=== PATIENT | male | born 1940 | race Caucasian/White ===

== ENCOUNTER 2017-03-29 19:49 | Emergency (ER) | payer MEDICARE, OTHER ==
[~2017-03-29] VITALS: Ht 162.6 cm; Wt 124.3 kg
[~2017-03-29 19:49] MED LIST: ASPI81CH43 GT; DICL100T11 OR; DIGO0.2570 OR; DILT120C22 OR; DILT40TA; DOXA1TAB; FLUO0.05 EX; FLUT110A IN; GLUCPOW42 OR; LOVA20TA4 OR; METH750T3 OR; MULTTAB99 OR; MUPI2CRE EX; NYSTOIN10 EX; TAM04C; WARF1TAB
[2017-03-29] MEDS ORDERED: MORPHINE SULF INJ 2 MG/ML SYRINGE 1ML IV ONE (22:30)
[2017-03-29] MEDS ORDERED: ONDANSETRON HCL 4 MG/2 ML VIAL IV ONE (22:30)
[2017-03-29 22:36] LABS: Basophils # (auto) 0.3 uL; Basophils % (auto) 2.9 % (0.0-2.0); Eosinophils # (auto) 0.1 uL; Eosinophils % (auto) 0.7 % (0.0-7.0); Hematocrit 39.2 % (41.0-53.0); Hemoglobin 13.1 g/dL (13.5-17.5); Lymphocytes # (auto) 0.6 uL; Lymphocytes % (auto) 6.5 % (10.0-50.0); Mean Corpuscular Hgb Conc. 33.5 g/dL (32.0-36.0); Mean Corpuscular Volume 92.7 fL (80.0-100.0); Mean Platelet Volume 8.3 fL (6.9-10.8); Monocytes # (auto) 0.6 uL; Monocytes % (auto) 6.3 % (0.0-12.0); Neutrophils # (auto) 7.3 uL; Neutrophils % (auto) 83.6 % (37.0-80.0); Nucleated Red Blood Cells % 0.1 %; Platelet Count (auto) 191 10^3/uL (140-450); Red Cell Distribution Width 15.2 % (11.8-14.3); White Blood Cell 8.7 10^3/uL (4.4-10.8)
[2017-03-29 22:51] LABS: INR 1.05 (0.9-1.15); Prothrombin Time 11.5 sec (9.37-12.3)
[2017-03-29 22:52] LABS: Anion Gap 10 (5-15); Blood Urea Nitrogen 22 mg/dL (7-18); Calcium 8.2 mg/dL (8.5-10.1); Carbon Dioxide 23 mmol/L (21-32); Chloride 107 mmol/L (98-107); Glucose 141 mg/dL (74-106); Potassium 3.7 mmol/L (3.5-5.1); Sodium 140 mmol/L (136-145)
[2017-03-29 22:55] LABS: Aspartate Aminotransferase 24 U/L (15-37); BUN/Creatinine Ratio 23.9; GFR African American 102 mL/min; GFR Non-African American 85 mL/min
[2017-03-29 23:16] LABS: Alkaline Phosphatase 82 U/L (45-117); Bilirubin, Total 0.4 mg/dL (0.2-1.0); Total Protein 6.2 g/dL (6.4-8.2)
[2017-03-30 00:50] LABS: Urine Bilirubin Negative (Negative); Urine Blood Negative /uL (Negative); Urine Color Yellow (Yellow); Urine Glucose Normal (Normal); Urine Hyaline Cast FEW /lpf (0 - 2); Urine Ketone Negative (Negative); Urine Mucus FEW (None Seen); Urine Nitrite Negative (Negative); Urine RBC 5 /hpf (0 - 3); Urine Squamous Epithelial Cell FEW /hpf (<5); Urine Urobilinogen Normal (Negative)
[2017-03-30] MEDS ORDERED: ONDANSETRON HCL 4 MG/2 ML VIAL IV ONE (01:15)
[2017-03-30] MEDS ORDERED: MORPHINE SULF INJ 2 MG/ML SYRINGE 1ML IV ONE (01:15)
[2017-03-30 02:49] VITALS: BP 96/66
== END 2017-03-30 05:37 | disposition home or self-care (01) ==
LOC: EDBD 19:49 → ER 19:49
DX: S82.891A Other fracture of right lower leg, initial encounter for closed fracture (principal); S92.901A Unspecified fracture of right foot, initial encounter for closed fracture; S20.211A Contusion of right front wall of thorax, initial encounter; S30.1XXA Contusion of abdominal wall, initial encounter; I10 Essential (primary) hypertension; J44.9 Chronic obstructive pulmonary disease, unspecified; E11.9 Type 2 diabetes mellitus without complications; Z79.01 Long term (current) use of anticoagulants; Z79.82 Long term (current) use of aspirin; V49.49XA Driver injured in collision with other motor vehicles in traffic accident, initial encounter; Y93.89 Activity, other specified; Y99.8 Other external cause status; Y92.488 Other paved roadways as the place of occurrence of the external cause
CPT/HCPCS: 29515; 36415; 70450; 71250; 73610; 73700; 74176; 80053; 81001; 84484; 85025; 85610; 85730; 93005; 96374; 96375; 96376; 99285; J2270; J2405

== ENCOUNTER 2023-07-01 09:12 | Inpatient (IN) | payer OTHER ==
[~2023-07-01] VITALS: Ht 177.8 cm; Wt 73.2 kg
[~2023-07-01 09:12] MED LIST changes: +METH-1182 PO; -METH750T3 OR; +NYSTOIN EX; -NYSTOIN10 EX; -TAM04C; +TAMS-35 PO
[2023-07-01 09:48] LABS: Basophils # (auto) 0.1 10 ^3/uL (0-0.2); Eosinophils # (auto) 0 10 ^3/uL (0-0.8); Eosinophils % (auto) 0.3 % (0.0-7.0); Lymphocytes # (auto) 0.8 10 ^3/uL (0.4-5.4)
[2023-07-01 09:50] LABS: Basophils % (auto) 0.6 % (0.0-2.0); Hematocrit 32.1 % (41.0-53.0); Hemoglobin 10.7 g/dL (13.5-17.5); Lymphocytes % (auto) 6.4 % (10.0-50.0); Mean Corpuscular Hemoglobin 27.3 pg (28.0-32.0); Mean Corpuscular Hgb Conc. 33.3 g/dL (32.0-36.0); Monocytes % (auto) 7.7 % (0.0-12.0); Neutrophils # (auto) 10.9 10 ^3/uL (1.6-8.6); Red Blood Cells 3.92 10^6/uL (4.5-5.90); White Blood Cell 12.9 10^3/uL (4.4-10.8)
[2023-07-01 09:52] LABS: Red Cell Distribution Width 20.9 % (11.8-14.3)
[2023-07-01 10:06] LABS: Alanine Aminotransferase 19 U/L (7-40); Albumin 3.8 g/dL (3.2-4.8); Alkaline Phosphatase 247 U/L (46-116); Anion Gap 9 (5-15); Aspartate Aminotransferase 20 U/L (13-40); BUN/Creatinine Ratio 39.1 (10.0-20.0); Bilirubin, Total 0.6 mg/dL (0.2-1.0); Blood Urea Nitrogen 27 mg/dL (9-23); Calcium 9.7 mg/dL (8.7-10.4); Carbon Dioxide 31 mmol/L (20-30); Chloride 99 mmol/L (98-107); Glucose 143 mg/dL (74-106); Lipase 45 U/L (12-53); Potassium 3.4 mmol/L (3.5-5.1); Sodium 139 mmol/L (136-145); Total Protein 7.3 g/dL (5.7-8.2)
[2023-07-01 10:17] LABS: INR 1.23 (0.9-1.15); Partial Thromboplastin Time 34.3 SEC (24.5-34.5); Prothrombin Time 12.7 sec (9.3-11.8)
[2023-07-01 12:04] LABS: Urine Epithelial Cast None Seen /hpf (<5)
[2023-07-01 12:40] LABS: Urine Bacteria MOD /hpf (None Seen); Urine Blood 1+ /uL (Negative); Urine Clarity CLOUDY (Clear); Urine Color Yellow (Yellow); Urine Mucus FEW (None Seen); Urine Protein, UAD 1+ (Negative); Urine Specific Gravity 1.017 (1.001-1.035); Urine Urobilinogen Normal (Negative); Urine WBC 350 /hpf (0 - 3); Urine WBC Clumps PRESENT /hpf (None Seen); Urine pH 8.5 (5.0-8.0)
[2023-07-01] MEDS: SODIUM CHLORIDE 0.9% 1,000 ML IV ONE (15:12)
[2023-07-01] MEDS: cefTRIAXone 1GM/50ML D5W 50 ML IV ONE (15:18)
[2023-07-01] MEDS: AZITHROMYCIN 500MG/ 250ML 250 ML IV ONE (17:04)
[2023-07-01] MEDS ORDERED: DOCUSATE SOD 100 MG CAP PO PRN (18:15)
[2023-07-01] MEDS ORDERED: MORPHINE SULFATE INJ 2 MG/ml SYRG IV PRN (18:15)
[2023-07-01] MEDS ORDERED: NITROGLYCERIN 0.4 MG SL TAB SL PRN (18:15)
[2023-07-01] MEDS: SODIUM CHLORIDE 0.9% 1,000 ML IV SCH (18:15)
[2023-07-01] MEDS ORDERED: POTA1TAB4 PO (18:38)
[2023-07-01] MEDS ORDERED: FER325T PO (18:38)
[2023-07-01] MEDS ORDERED: METH-1181 PO (18:38)
[2023-07-01] MEDS ORDERED: FURO40TA4 PO (18:38)
[2023-07-01] MEDS ORDERED: TAMS0.4C36 PO (18:38)
[2023-07-01] MEDS ORDERED: GABA-1250 PO (18:38)
[2023-07-01] MEDS ORDERED: HYDR-4798 PO (18:38)
[2023-07-01] MEDS ORDERED: APIX5TAB PO (18:38)
[2023-07-01] MEDS ORDERED: ATOR40TA52 PO (18:38)
[2023-07-01] MEDS ORDERED: METO5TAB5 PO (18:38)
[2023-07-01] MEDS ORDERED: IPRATROPIUM BROM 0.5 MG/2.5ML INH SOL NEB PRN (18:45)
[2023-07-01] MEDS ORDERED: DEXTROSE (50%) 50ML SYRG IV PRN (18:45)
[2023-07-01] MEDS ORDERED: ALBUTEROL SULF 2.5 MG/0.5ML(0.5%) NEB SOLN NEB PRN (18:45)
[2023-07-01 19:10] VITALS: BP 90/65; PULSE 97; RESP 18; TEMP 97.9; O2SAT 97
[2023-07-01] MEDS: ONDANSETRON HCL 4 MG/2 ML VIAL IV PRN (19:12)
[2023-07-01] MEDS: POTASSIUM EFFERVESENT TAB 25 MEQ PO ONE (19:12)
[2023-07-01 19:29] VITALS: O2SAT 97
[2023-07-01 19:35] VITALS: PULSE 72; RESP 15; O2SAT 100
[2023-07-01] MEDS: GABAPENTIN 300 MG CAP PO SCH (22:12)
[2023-07-01] MEDS: PANTOPRAZOLE 40 MG/10 ML VIAL INJ IV SCH (22:12)
[2023-07-01] MEDS: METHOCARBAMOL 500 MG TAB PO SCH (22:13)
[2023-07-01] MEDS: ATORVASTATIN 20 MG TAB PO SCH (22:13)
[2023-07-01] MEDS: ACCU-CHEK COMFORT CURVE STRIP VI SCH (22:16)
[2023-07-02 01:55] LABS: COVID19 ANTIGEN SOFIA FIA NEGATIVE (NEGATIVE); Rapid Influenza A Negative (Negative); Rapid Influenza B Negative (Negative)
[2023-07-02 06:22] LABS: Basophils # (auto) 0.1 10 ^3/uL (0-0.2); Basophils % (auto) 0.8 % (0.0-2.0); Eosinophils # (auto) 0.1 10 ^3/uL (0-0.8); Eosinophils % (auto) 1.2 % (0.0-7.0); Hematocrit 30.4 % (41.0-53.0); Hemoglobin 10.1 g/dL (13.5-17.5); Lymphocytes # (auto) 1.3 10 ^3/uL (0.4-5.4); Lymphocytes % (auto) 14.3 % (10.0-50.0); Mean Corpuscular Hemoglobin 27.1 pg (28.0-32.0); Mean Corpuscular Hgb Conc. 33.2 g/dL (32.0-36.0); Mean Corpuscular Volume 81.7 fL (80.0-100.0); Monocytes # (auto) 0.9 10 ^3/uL (0-1.3); Monocytes % (auto) 10.2 % (0.0-12.0); Neutrophils # (auto) 6.5 10 ^3/uL (1.6-8.6); Neutrophils % (auto) 73.5 % (37.0-80.0); Red Blood Cells 3.72 10^6/uL (4.5-5.90); White Blood Cell 8.9 10^3/uL (4.4-10.8)
[2023-07-02 06:29] LABS: Red Cell Distribution Width 21.5 % (11.8-14.3)
[2023-07-02 06:38] LABS: Alanine Aminotransferase 14 U/L (7-40); Alkaline Phosphatase 201 U/L (46-116); Anion Gap 6 (5-15); BUN/Creatinine Ratio 32.4 (10.0-20.0); Blood Urea Nitrogen 22 mg/dL (9-23); Calcium 10.2 mg/dL (8.5-10.1); Carbon Dioxide 32 mmol/L (20-30); Chloride 100 mmol/L (98-107); Glucose 125 mg/dL (74-106); LDL Cholesterol 39 mg/dL (< 100); Potassium 4.1 mmol/L (3.5-5.1); Sodium 138 mmol/L (136-145); Triglycerides 55 mg/dL (< 150)
[2023-07-02 06:39] LABS: Albumin 3.7 g/dL (3.2-4.8); Aspartate Aminotransferase 15 U/L (13-40); Bilirubin, Total 0.7 mg/dL (0.2-1.0); Cholesterol 115 mg/dL (< 200); HDL Cholesterol 57 mg/dL (40-59); Total Protein 7.3 g/dL (5.7-8.2)
[2023-07-02 06:48] VITALS: O2SAT 98
[2023-07-02] MEDS: FUROSEMIDE 20 MG/2 ML VIAL IV SCH (06:56)
[2023-07-02] MEDS: cefTRIAXone 1GM/50ML D5W 50 ML IV SCH (09:00)
[2023-07-02] MEDS: GASTROGRAFIN 120 ML SOL ONE (09:13)
[2023-07-02] MEDS: AZITHROMYCIN 500MG/ 250ML 250 ML IV SCH (10:00)
[2023-07-02] MEDS ORDERED: FUROSEMIDE 40 MG TAB PO SCH (10:00)
[2023-07-02] MEDS: LACTULOSE 20Gm/30ML SOLN PO SCH (10:22)
[2023-07-02] MEDS: POTASSIUM CHL 20 Meq TABLET PO SCH (10:23)
[2023-07-02] MEDS: FERROUS SULFATE 325mg EC TAB PO SCH (10:28)
[2023-07-02] MEDS: metOLazone 5 MG TAB PO SCH (10:28)
[2023-07-02] MEDS: TAMSULOSIN HYDROCHLORIDE 0.4 MG CAP PO SCH (18:00)
[2023-07-02 18:08] VITALS: O2SAT 97
[2023-07-02 19:30] VITALS: PULSE 70; RESP 11; O2SAT 100
[2023-07-02] MEDS: ENOXAPARIN SOD 80 MG/0.8ML SYRINGE SC SCH (20:23)
[2023-07-02] MEDS: METOPROLOL TARTRATE 25 MG TAB PO SCH (22:26)
[2023-07-03] VITALS (38 sets, daily range): BP systolic 77–129; BP diastolic 43–70; PULSE 43–106; RESP 11–22; TEMP 97.8–98.8; O2SAT 90–100
[2023-07-03] MEDS: dilTIAZem 120MG ER CAP PO SCH (09:40)
[2023-07-03] MEDS ORDERED: SPIRONOLACTONE 25 MG TAB PO SCH (10:00)
[2023-07-03] MEDS: NOREPINEPHRINE 8 MG/250ML KIT 250 ML IV ONE (16:22)
[2023-07-03] MEDS: NOREPINEPHRINE 8 MG/250ML KIT 250 ML IV SCH (16:23)
[2023-07-03] MEDS: DOPamine 1600MCG/ML D5W 250 ML IV ONE (16:44)
[2023-07-03] MEDS: GLUCAGON EMERG KIT 1mg/1ml IV ONE (17:00)
[2023-07-03] MEDS: DOPamine 1600MCG/ML D5W 250 ML IV SCH (17:22)
[2023-07-03 18:15] LABS: Basophils # (auto) 0.1 10 ^3/uL (0-0.2); Basophils % (auto) 1.4 % (0.0-2.0); Eosinophils # (auto) 0.3 10 ^3/uL (0-0.8); Eosinophils % (auto) 3.3 % (0.0-7.0); Hemoglobin 10.5 g/dL (13.5-17.5); Lymphocytes # (auto) 2.2 10 ^3/uL (0.4-5.4); Lymphocytes % (auto) 21.2 % (10.0-50.0); Mean Corpuscular Hemoglobin 27.1 pg (28.0-32.0); Mean Corpuscular Hgb Conc. 31.9 g/dL (32.0-36.0); Mean Corpuscular Volume 85.2 fL (80.0-100.0); Monocytes # (auto) 0.8 10 ^3/uL (0-1.3); Monocytes % (auto) 8.2 % (0.0-12.0); Neutrophils # (auto) 6.8 10 ^3/uL (1.6-8.6); Neutrophils % (auto) 65.9 % (37.0-80.0); Red Blood Cells 3.87 10^6/uL (4.5-5.90); White Blood Cell 10.4 10^3/uL (4.4-10.8)
[2023-07-03 18:18] LABS: Red Cell Distribution Width 21.6 % (11.8-14.3)
[2023-07-03 18:27] LABS: INR 1.31 (0.9-1.15); Partial Thromboplastin Time 42.1 SEC (24.5-34.5); Prothrombin Time 13.5 sec (9.3-11.8)
[2023-07-03 20:21] LABS: Chloride 103 mmol/L (98-107); Potassium 3.2 mmol/L (3.5-5.1)
[2023-07-03 20:24] LABS: Carbon Dioxide 26 mmol/L (20-30)
[2023-07-03 20:29] LABS: Glucose 170 mg/dL (74-106)
[2023-07-03 20:30] LABS: Alkaline Phosphatase 213 U/L (46-116); BUN/Creatinine Ratio 36.9 (10.0-20.0); Blood Urea Nitrogen 24 mg/dL (9-23); Magnesium 1.7 mg/dL (1.6-2.6)
[2023-07-03 20:31] LABS: Alanine Aminotransferase 16 U/L (7-40); Albumin 3.7 g/dL (3.2-4.8); Aspartate Aminotransferase 20 U/L (13-40)
[2023-07-03 20:32] LABS: Bilirubin, Total 0.7 mg/dL (0.2-1.0); Total Protein 7.1 g/dL (5.7-8.2)
[2023-07-03] MEDS: POTASSIUM CHL 20MEQ/100ML 100 ML IV SCH ×2 (21:30→23:49)
[2023-07-03] MEDS: MAGNESIUM SULFATE 1GM/100ML 100 ML IV ONE (21:30)
[2023-07-03 21:32] LABS: Anion Gap 8 (5-15); Sodium 137 mmol/L (136-145)
[2023-07-03] MEDS: MAGNESIUM SULFATE 1GM/100ML 100 ML IV SCH (21:44)
[2023-07-03 22:31] LABS: Free T3 1.8 pg/mL (2.3-4.2); Free T4 (Free Thyroxine) 1.18 ng/dL (0.89-1.76)
[2023-07-04] VITALS (101 sets, daily range): BP systolic 79–138; BP diastolic 50–107; PULSE 7–131; RESP 10–25; TEMP 97–98.7; O2SAT 91–100
[2023-07-04 07:16] LABS: Basophils # (auto) 0.1 10 ^3/uL (0-0.2); Basophils % (auto) 1.1 % (0.0-2.0); Eosinophils # (auto) 0.3 10 ^3/uL (0-0.8); Eosinophils % (auto) 2.8 % (0.0-7.0); Hematocrit 30.7 % (41.0-53.0); Hemoglobin 10.1 g/dL (13.5-17.5); Lymphocytes # (auto) 1.4 10 ^3/uL (0.4-5.4); Lymphocytes % (auto) 14.1 % (10.0-50.0); Mean Corpuscular Hemoglobin 26.8 pg (28.0-32.0); Mean Corpuscular Hgb Conc. 32.8 g/dL (32.0-36.0); Mean Corpuscular Volume 81.6 fL (80.0-100.0); Monocytes # (auto) 0.8 10 ^3/uL (0-1.3); Monocytes % (auto) 8.6 % (0.0-12.0); Neutrophils # (auto) 7.2 10 ^3/uL (1.6-8.6); Neutrophils % (auto) 73.4 % (37.0-80.0); Red Blood Cells 3.76 10^6/uL (4.5-5.90); Red Cell Distribution Width 20.9 % (11.8-14.3); White Blood Cell 9.8 10^3/uL (4.4-10.8)
[2023-07-04 07:42] LABS: Alanine Aminotransferase 13 U/L (7-40); Albumin 3.7 g/dL (3.2-4.8); Alkaline Phosphatase 195 U/L (46-116); Anion Gap 6 (5-15); Aspartate Aminotransferase 16 U/L (13-40); BUN/Creatinine Ratio 22.6 (10.0-20.0); Blood Urea Nitrogen 12 mg/dL (9-23); Calcium 8.8 mg/dL (8.7-10.4); Carbon Dioxide 26 mmol/L (20-30); Chloride 103 mmol/L (98-107); Glucose 159 mg/dL (74-106); Potassium 3.5 mmol/L (3.5-5.1); Sodium 135 mmol/L (136-145)
[2023-07-04 07:43] LABS: Bilirubin, Total 0.6 mg/dL (0.2-1.0); Total Protein 7.5 g/dL (5.7-8.2)
[2023-07-04] MEDS: FUROSEMIDE 20 MG/2 ML VIAL IV SCH (10:16)
[2023-07-04] MEDS: POTASSIUM CHL 20MEQ/100ML 100 ML IV SCH (11:56)
[2023-07-04] MEDS: APIXABAN 2.5 MG TAB PO SCH (21:09)
[2023-07-05] VITALS (98 sets, daily range): BP systolic 81–139; BP diastolic 25–76; PULSE 56–102; RESP 9–26; TEMP 97.6–98.6; O2SAT 95–100
[2023-07-05 05:23] LABS: Basophils # (auto) 0.1 10 ^3/uL (0-0.2); Basophils % (auto) 1.2 % (0.0-2.0); Eosinophils # (auto) 0.4 10 ^3/uL (0-0.8); Eosinophils % (auto) 4.1 % (0.0-7.0); Hematocrit 31.2 % (41.0-53.0); Hemoglobin 10.3 g/dL (13.5-17.5); Lymphocytes # (auto) 1.4 10 ^3/uL (0.4-5.4); Mean Corpuscular Hgb Conc. 33.2 g/dL (32.0-36.0); Mean Corpuscular Volume 81.3 fL (80.0-100.0); Monocytes # (auto) 0.9 10 ^3/uL (0-1.3); Neutrophils # (auto) 6.6 10 ^3/uL (1.6-8.6); Neutrophils % (auto) 69.7 % (37.0-80.0); Nucleated Red Blood Cells % 0.1 %; Red Blood Cells 3.83 10^6/uL (4.5-5.90); White Blood Cell 9.5 10^3/uL (4.4-10.8)
[2023-07-05 05:28] LABS: Chloride 102 mmol/L (98-107); Potassium 3.7 mmol/L (3.5-5.1); Sodium 134 mmol/L (136-145)
[2023-07-05 05:29] LABS: Anion Gap 5 (5-15); Calcium 8.8 mg/dL (8.7-10.4); Carbon Dioxide 27 mmol/L (20-30)
[2023-07-05 05:34] LABS: Glucose 134 mg/dL (74-106)
[2023-07-05 05:35] LABS: BUN/Creatinine Ratio 13.3 (10.0-20.0); Blood Urea Nitrogen 6 mg/dL (9-23); Magnesium 1.8 mg/dL (1.6-2.6)
[2023-07-05 06:12] LABS: Red Cell Distribution Width 20.5 % (11.8-14.3)
[2023-07-05] MEDS: MIDODRINE HCL 10 MG TAB PO SCH (17:18)
[2023-07-05] MEDS: ACETAMINOPHEN 325 MG TAB PO PRN (17:33)
[2023-07-05] MEDS: MELATONIN 5 MG TAB PO SCH (21:08)
[2023-07-05] MEDS: MUPIROCIN 2% OINT 15gm or 22gm FOR MRSA NARES EACHNOSTRI SCH (21:14)
[2023-07-05] MEDS: MAGNESIUM SULFATE 1GM/100ML 100 ML IV ONE (21:24)
[2023-07-06] VITALS (98 sets, daily range): BP systolic 68–126; BP diastolic 36–81; PULSE 53–119; RESP 10–27; TEMP 98.4–99.5; O2SAT 95–100
[2023-07-06 03:52] LABS: Basophils # (auto) 0.1 10 ^3/uL (0-0.2); Basophils % (auto) 1.4 % (0.0-2.0); Eosinophils # (auto) 0.4 10 ^3/uL (0-0.8); Eosinophils % (auto) 4.7 % (0.0-7.0); Hematocrit 32.4 % (41.0-53.0); Hemoglobin 10.8 g/dL (13.5-17.5); Lymphocytes # (auto) 1.8 10 ^3/uL (0.4-5.4); Mean Corpuscular Hemoglobin 27.2 pg (28.0-32.0); Mean Corpuscular Hgb Conc. 33.3 g/dL (32.0-36.0); Mean Corpuscular Volume 81.7 fL (80.0-100.0); Monocytes # (auto) 0.8 10 ^3/uL (0-1.3); Monocytes % (auto) 9.2 % (0.0-12.0); Neutrophils # (auto) 5.7 10 ^3/uL (1.6-8.6); Neutrophils % (auto) 64.7 % (37.0-80.0); Red Blood Cells 3.97 10^6/uL (4.5-5.90); White Blood Cell 8.9 10^3/uL (4.4-10.8)
[2023-07-06 03:54] LABS: Red Cell Distribution Width 20.4 % (11.8-14.3)
[2023-07-06 04:03] LABS: Calcium 9.1 mg/dL (8.7-10.4); Chloride 101 mmol/L (98-107); Potassium 4.2 mmol/L (3.5-5.1); Sodium 133 mmol/L (136-145)
[2023-07-06 04:04] LABS: Anion Gap 9 (5-15); Carbon Dioxide 23 mmol/L (20-30)
[2023-07-06 04:09] LABS: BUN/Creatinine Ratio 10.7 (10.0-20.0); Blood Urea Nitrogen 6 mg/dL (9-23); Glucose 139 mg/dL (74-106)
[2023-07-06 04:10] LABS: Magnesium 1.8 mg/dL (1.6-2.6)
[2023-07-07] VITALS (99 sets, daily range): BP systolic 74–123; BP diastolic 42–73; PULSE 51–114; RESP 10–27; TEMP 97.9–99.9; O2SAT 96–100
[2023-07-07 04:31] LABS: Anion Gap 10 (5-15); Carbon Dioxide 23 mmol/L (20-30); Chloride 101 mmol/L (98-107); Potassium 4.4 mmol/L (3.5-5.1); Sodium 134 mmol/L (136-145)
[2023-07-07 04:32] LABS: Calcium 8.9 mg/dL (8.7-10.4)
[2023-07-07 04:37] LABS: BUN/Creatinine Ratio 11.9 (10.0-20.0); Blood Urea Nitrogen 7 mg/dL (9-23); Glucose 146 mg/dL (74-106)
[2023-07-07] MEDS: NITROGLYCERIN 2% OINT 1GM PKG TD ONE (14:50)
[2023-07-07 15:27] LABS: INR 1.13 (0.9-1.15); Partial Thromboplastin Time 33.9 SEC (24.5-34.5); Prothrombin Time 11.8 sec (9.3-11.8)
[2023-07-07] MEDS: ERTAPENEM SOD INJ 1 GM in SODIUM CHL 0.9% 50 ML IV SCH (15:58)
[2023-07-07] MEDS: LIDOCAINE 1% (LOCAL ANESTH.) PF 5ml SDV ID ONE (16:20)
[2023-07-07] MEDS: SODIUM CHLOR 0.9% PF (SALINE LOCK) 10ML VIAL/SYR IV SCH (22:58)
[2023-07-08] VITALS (101 sets, daily range): BP systolic 71–132; BP diastolic 42–73; PULSE 54–107; RESP 12–25; TEMP 97.4–98.4; O2SAT 97–100
[2023-07-08 04:13] LABS: Basophils # (auto) 0 10 ^3/uL (0-0.2); Eosinophils # (auto) 0.5 10 ^3/uL (0-0.8); Hemoglobin 9.6 g/dL (13.5-17.5); Monocytes # (auto) 0.8 10 ^3/uL (0-1.3); Monocytes % (auto) 9.1 % (0.0-12.0); Neutrophils # (auto) 5.3 10 ^3/uL (1.6-8.6)
[2023-07-08 04:15] LABS: Basophils % (auto) 0.3 % (0.0-2.0); Eosinophils % (auto) 5.9 % (0.0-7.0); Hematocrit 29.1 % (41.0-53.0); Lymphocytes # (auto) 2.4 10 ^3/uL (0.4-5.4); Lymphocytes % (auto) 26.6 % (10.0-50.0); Mean Corpuscular Hemoglobin 26.6 pg (28.0-32.0); Mean Corpuscular Hgb Conc. 32.8 g/dL (32.0-36.0); Mean Corpuscular Volume 81.1 fL (80.0-100.0); Neutrophils % (auto) 58.1 % (37.0-80.0); Nucleated Red Blood Cells % 0.2 %; Red Blood Cells 3.59 10^6/uL (4.5-5.90); White Blood Cell 9.1 10^3/uL (4.4-10.8)
[2023-07-08 04:29] LABS: Calcium 8.5 mg/dL (8.7-10.4); Chloride 101 mmol/L (98-107); Potassium 4.1 mmol/L (3.5-5.1); Sodium 134 mmol/L (136-145)
[2023-07-08 04:30] LABS: Anion Gap 10 (5-15); Carbon Dioxide 23 mmol/L (20-30)
[2023-07-08 04:35] LABS: Glucose 130 mg/dL (74-106)
[2023-07-08 04:36] LABS: BUN/Creatinine Ratio 14.5 (10.0-20.0); Blood Urea Nitrogen 8 mg/dL (9-23); Magnesium 1.7 mg/dL (1.6-2.6)
[2023-07-08 04:51] LABS: Red Cell Distribution Width 20.6 % (11.8-14.3)
[2023-07-08] MEDS: NOREPINEPHRINE 8 MG/250ML KIT 250 ML IV SCH (18:00)
[2023-07-08] MEDS: MAGNESIUM SULFATE 1GM/100ML 100 ML IV SCH (18:56)
[2023-07-09] VITALS (96 sets, daily range): BP systolic 79–141; BP diastolic 43–81; PULSE 50–109; RESP 11–28; TEMP 97.6–98.7; O2SAT 92–100
[2023-07-09 04:28] LABS: Basophils # (auto) 0.3 10 ^3/uL (0-0.2); Eosinophils # (auto) 0.6 10 ^3/uL (0-0.8); Hemoglobin 10.2 g/dL (13.5-17.5); Lymphocytes # (auto) 1.9 10 ^3/uL (0.4-5.4)
[2023-07-09 04:30] LABS: Alanine Aminotransferase 14 U/L (7-40); Albumin 3.6 g/dL (3.2-4.8); Alkaline Phosphatase 173 U/L (46-116); Anion Gap 6 (5-15); Aspartate Aminotransferase 16 U/L (13-40); BUN/Creatinine Ratio 16.7 (10.0-20.0); Blood Urea Nitrogen 10 mg/dL (9-23); Calcium 9.1 mg/dL (8.5-10.1); Carbon Dioxide 26 mmol/L (20-30); Chloride 101 mmol/L (98-107); Glucose 142 mg/dL (74-106); Potassium 4.2 mmol/L (3.5-5.1); Sodium 133 mmol/L (136-145)
[2023-07-09 04:31] LABS: Bilirubin, Total 0.4 mg/dL (0.2-1.0)
[2023-07-09 04:32] LABS: Basophils % (auto) 2.8 % (0.0-2.0); Eosinophils % (auto) 6.5 % (0.0-7.0); Hematocrit 30.5 % (41.0-53.0); Lymphocytes % (auto) 21.2 % (10.0-50.0); Mean Corpuscular Hemoglobin 27.4 pg (28.0-32.0); Mean Corpuscular Hgb Conc. 33.6 g/dL (32.0-36.0); Mean Corpuscular Volume 81.8 fL (80.0-100.0); Monocytes % (auto) 10.6 % (0.0-12.0); Neutrophils # (auto) 5.3 10 ^3/uL (1.6-8.6); Neutrophils % (auto) 58.9 % (37.0-80.0); Red Blood Cells 3.73 10^6/uL (4.5-5.90); White Blood Cell 8.9 10^3/uL (4.4-10.8)
[2023-07-09 04:42] LABS: Red Cell Distribution Width 20.8 % (11.8-14.3)
[2023-07-09 12:26] LABS: Magnesium 2.1 mg/dL (1.6-2.6)
[2023-07-09 12:28] LABS: Phosphorus 3.4 mg/dL (2.4-5.1)
[2023-07-09] MEDS: DOPamine 1600MCG/ML D5W 250 ML IV SCH (17:15)
[2023-07-10] VITALS (98 sets, daily range): BP systolic 78–133; BP diastolic 50–75; PULSE 54–98; RESP 10–36; TEMP 97.6–98.4; O2SAT 90–100
[2023-07-10 07:00] LABS: Basophils # (auto) 0 10 ^3/uL (0-0.2); Basophils % (auto) 0.3 % (0.0-2.0); Eosinophils # (auto) 0.5 10 ^3/uL (0-0.8); Hematocrit 30.6 % (41.0-53.0); Lymphocytes # (auto) 1.8 10 ^3/uL (0.4-5.4); Lymphocytes % (auto) 21.7 % (10.0-50.0); Mean Corpuscular Hemoglobin 26.7 pg (28.0-32.0); Mean Corpuscular Hgb Conc. 32.7 g/dL (32.0-36.0); Mean Corpuscular Volume 81.7 fL (80.0-100.0); Monocytes # (auto) 0.8 10 ^3/uL (0-1.3); Monocytes % (auto) 9.9 % (0.0-12.0); Neutrophils # (auto) 5.2 10 ^3/uL (1.6-8.6); Neutrophils % (auto) 62.1 % (37.0-80.0); Red Blood Cells 3.75 10^6/uL (4.5-5.90); White Blood Cell 8.4 10^3/uL (4.4-10.8)
[2023-07-10 07:02] LABS: Red Cell Distribution Width 20.4 % (11.8-14.3)
[2023-07-10 07:04] LABS: Anion Gap 6 (5-15); Calcium 8.9 mg/dL (8.7-10.4); Carbon Dioxide 26 mmol/L (20-30); Chloride 101 mmol/L (98-107); Potassium 4.2 mmol/L (3.5-5.1); Sodium 133 mmol/L (136-145)
[2023-07-10 07:10] LABS: BUN/Creatinine Ratio 17.5 (10.0-20.0); Blood Urea Nitrogen 11 mg/dL (9-23); Glucose 136 mg/dL (74-106)
[2023-07-10 07:11] LABS: Magnesium 1.8 mg/dL (1.6-2.6)
[2023-07-10] MEDS: PANTOPRAZOLE 40 MG TAB PO SCH (10:23)
[2023-07-10] MEDS: POTASSIUM CHL 10 Meq TABLET PO SCH (10:23)
[2023-07-10] MEDS ORDERED: MIDODRINE HCL 10 MG TAB PO SCH (12:00)
[2023-07-10] MEDS: HYDROcodone-ACET 5/325MG TAB PO PRN (17:49)
[2023-07-11] VITALS (98 sets, daily range): BP systolic 76–140; BP diastolic 44–79; PULSE 55–116; RESP 11–25; TEMP 97.5–98.6; O2SAT 96–100
[2023-07-11 04:15] LABS: Basophils # (auto) 0.4 10 ^3/uL (0-0.2); Basophils % (auto) 5.1 % (0.0-2.0); Eosinophils # (auto) 0.4 10 ^3/uL (0-0.8); Eosinophils % (auto) 5.6 % (0.0-7.0); Hematocrit 28.6 % (41.0-53.0); Hemoglobin 9.6 g/dL (13.5-17.5); Lymphocytes # (auto) 1.8 10 ^3/uL (0.4-5.4); Mean Corpuscular Hemoglobin 27.6 pg (28.0-32.0); Mean Corpuscular Hgb Conc. 33.5 g/dL (32.0-36.0); Mean Corpuscular Volume 82.3 fL (80.0-100.0); Monocytes # (auto) 0.7 10 ^3/uL (0-1.3); Monocytes % (auto) 8.9 % (0.0-12.0); Neutrophils # (auto) 4.5 10 ^3/uL (1.6-8.6); Neutrophils % (auto) 57.4 % (37.0-80.0); Red Blood Cells 3.47 10^6/uL (4.5-5.90); White Blood Cell 7.8 10^3/uL (4.4-10.8)
[2023-07-11 04:24] LABS: Chloride 101 mmol/L (98-107); Potassium 3.7 mmol/L (3.5-5.1); Sodium 132 mmol/L (136-145)
[2023-07-11 04:25] LABS: Anion Gap 7 (5-15); Calcium 8.6 mg/dL (8.7-10.4); Carbon Dioxide 24 mmol/L (20-30)
[2023-07-11 04:30] LABS: BUN/Creatinine Ratio 17.5 (10.0-20.0); Blood Urea Nitrogen 10 mg/dL (9-23); Glucose 190 mg/dL (74-106); Magnesium 1.6 mg/dL (1.6-2.6)
[2023-07-11 04:37] LABS: Red Cell Distribution Width 20.6 % (11.8-14.3)
[2023-07-11] MEDS: MAGNESIUM SULFATE 1GM/100ML 100 ML IV SCH (12:35)
[2023-07-11] MEDS: POTASSIUM CHL 20 Meq TABLET PO ONE (12:35)
[2023-07-11] MEDS: Glucerna Carbsteady SHAKE Stawberry 8oz PO SCH (21:22)
[2023-07-12] VITALS (97 sets, daily range): BP systolic 67–122; BP diastolic 45–72; PULSE 67–114; RESP 9–29; TEMP 97.5–97.9; O2SAT 88–100
[2023-07-12 03:54] LABS: Basophils # (auto) 0 10 ^3/uL (0-0.2); Basophils % (auto) 0.5 % (0.0-2.0); Eosinophils # (auto) 0.6 10 ^3/uL (0-0.8); Eosinophils % (auto) 7.2 % (0.0-7.0); Hematocrit 29.7 % (41.0-53.0); Hemoglobin 9.9 g/dL (13.5-17.5); Lymphocytes # (auto) 1.6 10 ^3/uL (0.4-5.4); Lymphocytes % (auto) 19.2 % (10.0-50.0); Mean Corpuscular Hgb Conc. 33.2 g/dL (32.0-36.0); Mean Corpuscular Volume 81.3 fL (80.0-100.0); Monocytes # (auto) 0.7 10 ^3/uL (0-1.3); Monocytes % (auto) 8.8 % (0.0-12.0); Neutrophils # (auto) 5.2 10 ^3/uL (1.6-8.6); Neutrophils % (auto) 64.3 % (37.0-80.0); Nucleated Red Blood Cells % 0.1 %; Red Blood Cells 3.65 10^6/uL (4.5-5.90); Red Cell Distribution Width 20.2 % (11.8-14.3); White Blood Cell 8.1 10^3/uL (4.4-10.8)
[2023-07-12 04:08] LABS: Alanine Aminotransferase 15 U/L (7-40); Alkaline Phosphatase 195 U/L (46-116); Anion Gap 7 (5-15); BUN/Creatinine Ratio 18.4 (10.0-20.0); Blood Urea Nitrogen 9 mg/dL (9-23); Calcium 8.9 mg/dL (8.7-10.4); Carbon Dioxide 25 mmol/L (20-30); Chloride 101 mmol/L (98-107); Glucose 134 mg/dL (74-106); Potassium 4.2 mmol/L (3.5-5.1); Sodium 133 mmol/L (136-145)
[2023-07-12 04:09] LABS: Albumin 3.5 g/dL (3.2-4.8); Aspartate Aminotransferase 16 U/L (13-40); Bilirubin, Total 0.3 mg/dL (0.2-1.0); Total Protein 6.9 g/dL (5.7-8.2)
[2023-07-12] MEDS: MIDODRINE HCL 10 MG TAB PO SCH (18:20)
[2023-07-13] VITALS (94 sets, daily range): BP systolic 78–137; BP diastolic 48–90; PULSE 48–102; RESP 10–27; TEMP 97.7–98.6; O2SAT 89–100
[2023-07-13 09:17] LABS: Alanine Aminotransferase 12 U/L (7-40); Albumin 3.4 g/dL (3.2-4.8); Alkaline Phosphatase 193 U/L (46-116); Anion Gap 8 (5-15); Aspartate Aminotransferase 14 U/L (13-40); BUN/Creatinine Ratio 14.8 (10.0-20.0); Blood Urea Nitrogen 8 mg/dL (9-23); Calcium 8.4 mg/dL (8.7-10.4); Carbon Dioxide 23 mmol/L (20-30); Chloride 101 mmol/L (98-107); Magnesium 1.6 mg/dL (1.6-2.6); Potassium 3.8 mmol/L (3.5-5.1); Sodium 132 mmol/L (136-145)
[2023-07-13 09:18] LABS: Bilirubin, Total 0.3 mg/dL (0.2-1.0); Total Protein 6.6 g/dL (5.7-8.2)
[2023-07-13 09:19] LABS: Glucose 236 mg/dL (74-106)
[2023-07-13 09:26] LABS: Basophils # (auto) 0.4 10 ^3/uL (0-0.2); Eosinophils # (auto) 0.4 10 ^3/uL (0-0.8); Eosinophils % (auto) 4.4 % (0.0-7.0); Hematocrit 29.1 % (41.0-53.0); Hemoglobin 9.5 g/dL (13.5-17.5); Mean Corpuscular Hemoglobin 26.6 pg (28.0-32.0); Monocytes # (auto) 0.6 10 ^3/uL (0-1.3); Red Blood Cells 3.55 10^6/uL (4.5-5.90); White Blood Cell 8.4 10^3/uL (4.4-10.8)
[2023-07-13 09:29] LABS: Basophils % (auto) 5.1 % (0.0-2.0); Lymphocytes # (auto) 1.6 10 ^3/uL (0.4-5.4); Lymphocytes % (auto) 19.3 % (10.0-50.0); Mean Corpuscular Hgb Conc. 32.6 g/dL (32.0-36.0); Mean Corpuscular Volume 81.8 fL (80.0-100.0); Neutrophils # (auto) 5.4 10 ^3/uL (1.6-8.6); Neutrophils % (auto) 64.2 % (37.0-80.0)
[2023-07-13 09:30] LABS: Red Cell Distribution Width 20.4 % (11.8-14.3)
[2023-07-13] MEDS: MAGNESIUM SULFATE 1GM/100ML 100 ML IV SCH (11:26)
[2023-07-14] VITALS (108 sets, daily range): BP systolic 83–130; BP diastolic 49–79; PULSE 52–155; RESP 10–24; TEMP 97.5–97.8; O2SAT 87–100
[2023-07-14 07:45] LABS: Anion Gap 8 (5-15); Carbon Dioxide 23 mmol/L (20-30); Chloride 102 mmol/L (98-107); Potassium 4.2 mmol/L (3.5-5.1); Sodium 133 mmol/L (136-145)
[2023-07-14 07:46] LABS: Calcium 8.8 mg/dL (8.7-10.4)
[2023-07-14 07:51] LABS: Blood Urea Nitrogen 6 mg/dL (9-23); Glucose 139 mg/dL (74-106)
[2023-07-15] VITALS (101 sets, daily range): BP systolic 71–142; BP diastolic 41–79; PULSE 60–121; RESP 11–34; TEMP 97.3–98.3; O2SAT 86–100
[2023-07-16] VITALS (99 sets, daily range): BP systolic 78–127; BP diastolic 42–73; PULSE 63–108; RESP 11–24; TEMP 97.3–98.7; O2SAT 88–100
[2023-07-16 03:11] LABS: % Iron Saturation 12.6 % (20-55)
[2023-07-16 03:15] LABS: Folate (Folic Acid) 18.02 ng/mL (>5.38)
[2023-07-17] VITALS (96 sets, daily range): BP systolic 54–124; BP diastolic 35–74; PULSE 62–125; RESP 9–27; TEMP 97.5–98.9; O2SAT 84–100
[2023-07-18] VITALS (82 sets, daily range): BP systolic 71–122; BP diastolic 42–70; PULSE 60–104; RESP 9–22; TEMP 97.7–98.3; O2SAT 83–100
[2023-07-18 09:30] LABS: Basophils # (auto) 0.1 10 ^3/uL (0-0.2); Basophils % (auto) 0.8 % (0.0-2.0); Eosinophils # (auto) 0.4 10 ^3/uL (0-0.8); Eosinophils % (auto) 5.1 % (0.0-7.0); Hematocrit 26.9 % (41.0-53.0); Hemoglobin 8.8 g/dL (13.5-17.5); Lymphocytes # (auto) 1.1 10 ^3/uL (0.4-5.4); Lymphocytes % (auto) 15.4 % (10.0-50.0); Mean Corpuscular Hemoglobin 27.4 pg (28.0-32.0); Mean Corpuscular Hgb Conc. 32.9 g/dL (32.0-36.0); Mean Corpuscular Volume 83.4 fL (80.0-100.0); Monocytes # (auto) 0.7 10 ^3/uL (0-1.3); Monocytes % (auto) 10.2 % (0.0-12.0); Neutrophils # (auto) 4.7 10 ^3/uL (1.6-8.6); Neutrophils % (auto) 68.5 % (37.0-80.0); Nucleated Red Blood Cells % 0.1 %; Red Blood Cells 3.22 10^6/uL (4.5-5.90); Red Cell Distribution Width 20.1 % (11.8-14.3); White Blood Cell 6.9 10^3/uL (4.4-10.8)
[2023-07-18 09:43] LABS: Alanine Aminotransferase 14 U/L (7-40); Albumin 3.2 g/dL (3.2-4.8); Alkaline Phosphatase 193 U/L (46-116); Anion Gap 4 (5-15); Aspartate Aminotransferase 17 U/L (13-40); BUN/Creatinine Ratio 12.5 (10.0-20.0); Blood Urea Nitrogen 7 mg/dL (9-23); Calcium 8.5 mg/dL (8.5-10.1); Carbon Dioxide 27 mmol/L (20-30); Chloride 99 mmol/L (98-107); Potassium 3.6 mmol/L (3.5-5.1); Sodium 130 mmol/L (136-145)
[2023-07-18 09:44] LABS: Bilirubin, Total 0.4 mg/dL (0.2-1.0); Total Protein 6.1 g/dL (5.7-8.2)
[2023-07-18 09:47] LABS: Glucose 267 mg/dL (74-106)
[2023-07-18 12:52] LABS: Magnesium 1.5 mg/dL (1.6-2.6)
[2023-07-18] MEDS: MAGNESIUM SULFATE 1GM/100ML 100 ML IV SCH (21:06)
[2023-07-19] VITALS (85 sets, daily range): BP systolic 72–118; BP diastolic 38–70; PULSE 53–132; RESP 11–32; TEMP 97.6–98.7; O2SAT 89–100
[2023-07-19 12:09] LABS: Hematocrit 26.1 % (41.0-53.0); Hemoglobin 8.6 g/dL (13.5-17.5); Mean Corpuscular Hemoglobin 27.4 pg (28.0-32.0); Mean Corpuscular Hgb Conc. 33.1 g/dL (32.0-36.0); Mean Corpuscular Volume 82.7 fL (80.0-100.0); Red Blood Cells 3.15 10^6/uL (4.5-5.90); White Blood Cell 6.7 10^3/uL (4.4-10.8)
[2023-07-19 12:10] LABS: Red Cell Distribution Width 20.1 % (11.8-14.3)
[2023-07-19 12:12] LABS: Band Neutrophils % (manual) 0; Basophils % (manual) 0 (0.0-2.0); Blast Cells 0; Metamyelocytes % 0; Myelocytes % 0; Promyelocytes % 0; Reactive Lymphocytes 0
[2023-07-19 12:26] LABS: Alanine Aminotransferase 11 U/L (7-40); Albumin 3.1 g/dL (3.2-4.8); Alkaline Phosphatase 197 U/L (46-116); Anion Gap 5 (5-15); Aspartate Aminotransferase 15 U/L (13-40); BUN/Creatinine Ratio 16.7 (10.0-20.0); Bilirubin, Total 0.3 mg/dL (0.2-1.0); Blood Urea Nitrogen 8 mg/dL (9-23); Carbon Dioxide 25 mmol/L (20-30); Chloride 102 mmol/L (98-107); Glucose 221 mg/dL (74-106); Magnesium 1.9 mg/dL (1.6-2.6); Potassium 3.8 mmol/L (3.5-5.1); Sodium 132 mmol/L (136-145); Total Protein 6.2 g/dL (5.7-8.2)
[2023-07-19 12:31] LABS: Eosinophils % (manual) 2 (0-7); Lymphocytes % (manual) 14 (10.0-50.0); Monocytes % (manual) 11 (0-12)
[2023-07-19 12:32] LABS: Anisocytosis Slight; Platelet Estimate Adequate
[2023-07-20] VITALS (100 sets, daily range): BP systolic 64–122; BP diastolic 36–69; PULSE 61–115; RESP 10–22; TEMP 97.6–98.6; O2SAT 97–100
[2023-07-20 03:41] LABS: Basophils # (auto) 0.2 10 ^3/uL (0-0.2); Basophils % (auto) 2.5 % (0.0-2.0); Eosinophils # (auto) 0.4 10 ^3/uL (0-0.8); Eosinophils % (auto) 5.1 % (0.0-7.0); Hematocrit 27.6 % (41.0-53.0); Hemoglobin 9.2 g/dL (13.5-17.5); Lymphocytes # (auto) 1.5 10 ^3/uL (0.4-5.4); Mean Corpuscular Hemoglobin 27.5 pg (28.0-32.0); Mean Corpuscular Hgb Conc. 33.3 g/dL (32.0-36.0); Mean Corpuscular Volume 82.7 fL (80.0-100.0); Monocytes # (auto) 0.7 10 ^3/uL (0-1.3); Monocytes % (auto) 9.9 % (0.0-12.0); Neutrophils # (auto) 4.3 10 ^3/uL (1.6-8.6); Neutrophils % (auto) 61.5 % (37.0-80.0); Red Blood Cells 3.34 10^6/uL (4.5-5.90); White Blood Cell 6.9 10^3/uL (4.4-10.8)
[2023-07-20 03:48] LABS: Alanine Aminotransferase 11 U/L (7-40); Albumin 3.3 g/dL (3.2-4.8); Alkaline Phosphatase 203 U/L (46-116); Anion Gap 5 (5-15); Aspartate Aminotransferase 15 U/L (13-40); BUN/Creatinine Ratio 15.9 (10.0-20.0); Bilirubin, Total 0.4 mg/dL (0.2-1.0); Blood Urea Nitrogen 7 mg/dL (9-23); Calcium 8.8 mg/dL (8.7-10.4); Carbon Dioxide 27 mmol/L (20-30); Chloride 102 mmol/L (98-107); Glucose 145 mg/dL (74-106); Magnesium 1.8 mg/dL (1.6-2.6); Potassium 3.8 mmol/L (3.5-5.1); Sodium 134 mmol/L (136-145); Total Protein 6.6 g/dL (5.7-8.2)
[2023-07-20 03:54] LABS: Red Cell Distribution Width 20.4 % (11.8-14.3)
[2023-07-20] MEDS: HYDROcodone-ACET 5/325MG TAB PO PRN (09:39)
[2023-07-21] VITALS (97 sets, daily range): BP systolic 83–138; BP diastolic 47–90; PULSE 61–140; RESP 9–22; TEMP 97.6–98.6; O2SAT 96–100
[2023-07-21 04:12] LABS: Basophils # (auto) 0.3 10 ^3/uL (0-0.2); Basophils % (auto) 3.7 % (0.0-2.0); Eosinophils # (auto) 0.5 10 ^3/uL (0-0.8); Eosinophils % (auto) 6.8 % (0.0-7.0); Hematocrit 27.4 % (41.0-53.0); Hemoglobin 9.1 g/dL (13.5-17.5); Lymphocytes # (auto) 1.6 10 ^3/uL (0.4-5.4); Lymphocytes % (auto) 23.4 % (10.0-50.0); Mean Corpuscular Hemoglobin 27.6 pg (28.0-32.0); Mean Corpuscular Hgb Conc. 33.1 g/dL (32.0-36.0); Mean Corpuscular Volume 83.4 fL (80.0-100.0); Monocytes # (auto) 0.7 10 ^3/uL (0-1.3); Monocytes % (auto) 10.5 % (0.0-12.0); Neutrophils # (auto) 3.9 10 ^3/uL (1.6-8.6); Neutrophils % (auto) 55.6 % (37.0-80.0); Nucleated Red Blood Cells % 0.1 %; Red Blood Cells 3.28 10^6/uL (4.5-5.90); Red Cell Distribution Width 19.9 % (11.8-14.3); White Blood Cell 6.9 10^3/uL (4.4-10.8)
[2023-07-21 04:37] LABS: Alanine Aminotransferase 11 U/L (7-40); Albumin 3.3 g/dL (3.2-4.8); Alkaline Phosphatase 194 U/L (46-116); Anion Gap 5 (5-15); Aspartate Aminotransferase 15 U/L (13-40); BUN/Creatinine Ratio 18.4 (10.0-20.0); Blood Urea Nitrogen 9 mg/dL (9-23); Calcium 8.8 mg/dL (8.7-10.4); Carbon Dioxide 26 mmol/L (20-30); Chloride 102 mmol/L (98-107); Glucose 136 mg/dL (74-106); Sodium 133 mmol/L (136-145)
[2023-07-21 04:38] LABS: Bilirubin, Total 0.3 mg/dL (0.2-1.0); Total Protein 6.6 g/dL (5.7-8.2)
[2023-07-21] MEDS: FLUCONAZOLE 100 MG TAB PO SCH (10:30)
[2023-07-21] MEDS: MAGNESIUM SULFATE 1GM/100ML 100 ML IV SCH (10:30)
[2023-07-21] MEDS: LINEZOLID 600MG/300ML 300 ML IV SCH (10:47)
[2023-07-22] VITALS (95 sets, daily range): BP systolic 79–126; BP diastolic 42–77; PULSE 65–138; RESP 10–23; TEMP 97.6–98.7; O2SAT 96–100
[2023-07-22 03:34] LABS: Basophils # (auto) 0 10 ^3/uL (0-0.2); Basophils % (auto) 0.3 % (0.0-2.0); Hemoglobin 9.3 g/dL (13.5-17.5); Lymphocytes # (auto) 1.4 10 ^3/uL (0.4-5.4); Monocytes # (auto) 0.7 10 ^3/uL (0-1.3)
[2023-07-22 03:37] LABS: Eosinophils # (auto) 0.5 10 ^3/uL (0-0.8); Eosinophils % (auto) 6.7 % (0.0-7.0); Hematocrit 27.9 % (41.0-53.0); Lymphocytes % (auto) 19.1 % (10.0-50.0); Mean Corpuscular Hemoglobin 27.6 pg (28.0-32.0); Mean Corpuscular Hgb Conc. 33.4 g/dL (32.0-36.0); Mean Corpuscular Volume 82.7 fL (80.0-100.0); Monocytes % (auto) 9.6 % (0.0-12.0); Neutrophils # (auto) 4.6 10 ^3/uL (1.6-8.6); Neutrophils % (auto) 64.3 % (37.0-80.0); Red Blood Cells 3.37 10^6/uL (4.5-5.90); White Blood Cell 7.1 10^3/uL (4.4-10.8)
[2023-07-22 03:47] LABS: Anion Gap 7 (5-15); Carbon Dioxide 27 mmol/L (20-30); Chloride 100 mmol/L (98-107); Potassium 3.8 mmol/L (3.5-5.1); Sodium 134 mmol/L (136-145)
[2023-07-22 03:48] LABS: Calcium 8.7 mg/dL (8.7-10.4)
[2023-07-22 03:53] LABS: BUN/Creatinine Ratio 19.6 (10.0-20.0); Blood Urea Nitrogen 9 mg/dL (9-23); Glucose 156 mg/dL (74-106); Red Cell Distribution Width 20.3 % (11.8-14.3)
[2023-07-22] MEDS: MAGNESIUM SULFATE 1GM/100ML 100 ML IV SCH (10:04)
[2023-07-23] VITALS (100 sets, daily range): BP systolic 68–142; BP diastolic 37–79; PULSE 50–110; RESP 10–22; TEMP 97.7–98.7; O2SAT 88–100
[2023-07-23 07:59] LABS: Basophils # (auto) 0 10 ^3/uL (0-0.2); Basophils % (auto) 0.3 % (0.0-2.0); Eosinophils # (auto) 0.4 10 ^3/uL (0-0.8); Eosinophils % (auto) 6.5 % (0.0-7.0); Hematocrit 26.1 % (41.0-53.0); Hemoglobin 8.7 g/dL (13.5-17.5); Lymphocytes # (auto) 1.4 10 ^3/uL (0.4-5.4); Mean Corpuscular Hemoglobin 27.6 pg (28.0-32.0); Mean Corpuscular Hgb Conc. 33.5 g/dL (32.0-36.0); Mean Corpuscular Volume 82.6 fL (80.0-100.0); Monocytes # (auto) 0.6 10 ^3/uL (0-1.3); Monocytes % (auto) 9.7 % (0.0-12.0); Neutrophils # (auto) 4.1 10 ^3/uL (1.6-8.6); Neutrophils % (auto) 62.5 % (37.0-80.0); Nucleated Red Blood Cells % 0.1 %; Red Blood Cells 3.16 10^6/uL (4.5-5.90); Red Cell Distribution Width 19.9 % (11.8-14.3); White Blood Cell 6.5 10^3/uL (4.4-10.8)
[2023-07-23 08:09] LABS: Alanine Aminotransferase 11 U/L (7-40); Albumin 3.2 g/dL (3.2-4.8); Alkaline Phosphatase 204 U/L (46-116); Anion Gap 5 (5-15); Aspartate Aminotransferase 17 U/L (13-40); BUN/Creatinine Ratio 13.8 (10.0-20.0); Bilirubin, Total 0.4 mg/dL (0.2-1.0); Blood Urea Nitrogen 8 mg/dL (9-23); Calcium 8.6 mg/dL (8.5-10.1); Carbon Dioxide 28 mmol/L (20-30); Chloride 99 mmol/L (98-107); Glucose 242 mg/dL (74-106); Potassium 3.8 mmol/L (3.5-5.1); Sodium 132 mmol/L (136-145); Total Protein 6.2 g/dL (5.7-8.2)
[2023-07-23 09:05] LABS: Magnesium 1.7 mg/dL (1.6-2.6)
[2023-07-23] MEDS: IRON SUCROSE COMPLEX 100 ML IV SCH (16:29)
[2023-07-24] VITALS (82 sets, daily range): BP systolic 78–116; BP diastolic 45–71; PULSE 57–114; RESP 11–24; TEMP 98.1–98.9; O2SAT 98–100
[2023-07-25] VITALS (96 sets, daily range): BP systolic 69–133; BP diastolic 34–80; PULSE 60–147; RESP 10–25; TEMP 97.8–98.8; O2SAT 92–100
[2023-07-25 04:26] LABS: Alanine Aminotransferase 14 U/L (7-40); Albumin 3.3 g/dL (3.2-4.8); Alkaline Phosphatase 214 U/L (46-116); Anion Gap 8 (5-15); Aspartate Aminotransferase 17 U/L (13-40); Bilirubin, Total 0.4 mg/dL (0.2-1.0); Blood Urea Nitrogen 7 mg/dL (9-23); Calcium 9.1 mg/dL (8.7-10.4); Carbon Dioxide 25 mmol/L (20-30); Chloride 104 mmol/L (98-107); Magnesium 1.8 mg/dL (1.6-2.6); Potassium 3.9 mmol/L (3.5-5.1); Sodium 137 mmol/L (136-145); Total Protein 6.7 g/dL (5.7-8.2)
[2023-07-25 04:35] LABS: Glucose 139 mg/dL (74-106)
[2023-07-26] VITALS (84 sets, daily range): BP systolic 64–137; BP diastolic 37–81; PULSE 60–126; RESP 9–23; TEMP 97.7–98.7; O2SAT 88–100
[2023-07-27] VITALS (99 sets, daily range): BP systolic 79–129; BP diastolic 51–81; PULSE 60–137; RESP 11–26; TEMP 97.7–98.7; O2SAT 83–100
[2023-07-28] VITALS (94 sets, daily range): BP systolic 69–121; BP diastolic 37–75; PULSE 50–128; RESP 9–22; TEMP 97.7–98.2; O2SAT 98–100
[2023-07-28 04:59] LABS: Basophils # (auto) 0.2 10 ^3/uL (0-0.2); Basophils % (auto) 2.1 % (0.0-2.0); Eosinophils # (auto) 0.6 10 ^3/uL (0-0.8); Eosinophils % (auto) 6.8 % (0.0-7.0); Hematocrit 28.9 % (41.0-53.0); Hemoglobin 9.4 g/dL (13.5-17.5); Lymphocytes # (auto) 1.8 10 ^3/uL (0.4-5.4); Lymphocytes % (auto) 21.9 % (10.0-50.0); Mean Corpuscular Hemoglobin 27.5 pg (28.0-32.0); Mean Corpuscular Hgb Conc. 32.5 g/dL (32.0-36.0); Mean Corpuscular Volume 84.7 fL (80.0-100.0); Monocytes # (auto) 0.8 10 ^3/uL (0-1.3); Monocytes % (auto) 10.2 % (0.0-12.0); Neutrophils # (auto) 4.8 10 ^3/uL (1.6-8.6); Nucleated Red Blood Cells % 0.1 %; Red Blood Cells 3.41 10^6/uL (4.5-5.90); Red Cell Distribution Width 19.6 % (11.8-14.3); White Blood Cell 8.1 10^3/uL (4.4-10.8)
[2023-07-28 05:17] LABS: Alanine Aminotransferase 12 U/L (7-40); Albumin 3.5 g/dL (3.2-4.8); Alkaline Phosphatase 207 U/L (46-116); Anion Gap 7 (5-15); Aspartate Aminotransferase 17 U/L (13-40); BUN/Creatinine Ratio 19.6 (10.0-20.0); Bilirubin, Total 0.4 mg/dL (0.2-1.0); Blood Urea Nitrogen 10 mg/dL (9-23); Carbon Dioxide 26 mmol/L (20-30); Chloride 102 mmol/L (98-107); Glucose 146 mg/dL (74-106); Magnesium 1.6 mg/dL (1.6-2.6); Potassium 3.6 mmol/L (3.5-5.1); Sodium 135 mmol/L (136-145); Total Protein 6.9 g/dL (5.7-8.2)
[2023-07-28] MEDS: MAGNESIUM SULFATE 1GM/100ML 100 ML IV SCH (12:30)
[2023-07-28] MEDS ORDERED: MAGNESIUM SULFATE 1GM/100ML 100 ML IV SCH (13:00)
[2023-07-29] VITALS (93 sets, daily range): BP systolic 81–121; BP diastolic 45–77; PULSE 51–124; RESP 9–21; TEMP 97.1–98.5; O2SAT 98–100
[2023-07-29 05:19] LABS: Basophils # (auto) 0.1 10 ^3/uL (0-0.2); Basophils % (auto) 2.2 % (0.0-2.0); Eosinophils # (auto) 0.6 10 ^3/uL (0-0.8); Eosinophils % (auto) 8.7 % (0.0-7.0); Hematocrit 28.5 % (41.0-53.0); Hemoglobin 9.5 g/dL (13.5-17.5); Lymphocytes # (auto) 1.8 10 ^3/uL (0.4-5.4); Lymphocytes % (auto) 27.6 % (10.0-50.0); Mean Corpuscular Hgb Conc. 33.4 g/dL (32.0-36.0); Mean Corpuscular Volume 83.8 fL (80.0-100.0); Monocytes # (auto) 0.6 10 ^3/uL (0-1.3); Monocytes % (auto) 9.4 % (0.0-12.0); Neutrophils # (auto) 3.5 10 ^3/uL (1.6-8.6); Neutrophils % (auto) 52.1 % (37.0-80.0); Red Cell Distribution Width 19.8 % (11.8-14.3); White Blood Cell 6.7 10^3/uL (4.4-10.8)
[2023-07-29 05:27] LABS: Chloride 105 mmol/L (98-107); Potassium 3.8 mmol/L (3.5-5.1); Sodium 137 mmol/L (136-145)
[2023-07-29 05:28] LABS: Anion Gap 6 (5-15); Calcium 9.3 mg/dL (8.5-10.1); Carbon Dioxide 26 mmol/L (20-30)
[2023-07-29 05:33] LABS: BUN/Creatinine Ratio 15.5 (10.0-20.0); Blood Urea Nitrogen 9 mg/dL (9-23); Glucose 141 mg/dL (74-106)
[2023-07-29] MEDS: HYDROcodone-ACET 5/325MG TAB PO PRN (08:24)
[2023-07-29] MEDS: MAGNESIUM SULFATE 1GM/100ML 100 ML IV SCH (11:19)
[2023-07-30] VITALS (97 sets, daily range): BP systolic 85–125; BP diastolic 42–83; PULSE 54–114; RESP 10–21; TEMP 97–98.2; O2SAT 73–100
[2023-07-30 05:01] LABS: Chloride 103 mmol/L (98-107); Sodium 134 mmol/L (136-145)
[2023-07-30 05:02] LABS: Anion Gap 5 (5-15); Calcium 8.8 mg/dL (8.7-10.4); Carbon Dioxide 26 mmol/L (20-30)
[2023-07-30 05:07] LABS: Glucose 131 mg/dL (74-106)
[2023-07-30 05:08] LABS: BUN/Creatinine Ratio 20.8 (10.0-20.0); Blood Urea Nitrogen 11 mg/dL (9-23); Magnesium,Therapeutic 1.89 mg/dL (4.0-7.1)
[2023-07-31] VITALS (91 sets, daily range): BP systolic 79–130; BP diastolic 40–92; PULSE 54–90; RESP 10–19; TEMP 97.5–98.2; O2SAT 75–100
[2023-08-01] VITALS (96 sets, daily range): BP systolic 82–113; BP diastolic 39–82; PULSE 57–150; RESP 10–21; TEMP 97.5–97.8; O2SAT 80–100
[2023-08-02] VITALS (99 sets, daily range): BP systolic 78–128; BP diastolic 43–72; PULSE 60–90; RESP 10–23; TEMP 97.5–98.3; O2SAT 83–100
[2023-08-03] VITALS (100 sets, daily range): BP systolic 87–114; BP diastolic 49–72; PULSE 53–109; RESP 9–24; TEMP 97.4–98.1; O2SAT 90–100
[2023-08-03] MEDS: ALBUMIN 25% 100 ML IV SCH (09:29)
[2023-08-04] VITALS (96 sets, daily range): BP systolic 80–128; BP diastolic 44–76; PULSE 52–104; RESP 9–21; TEMP 97.4–98.4; O2SAT 97–100
[2023-08-04 05:03] LABS: Basophils # (auto) 0 10 ^3/uL (0-0.2); Basophils % (auto) 0.5 % (0.0-2.0); Eosinophils # (auto) 0.5 10 ^3/uL (0-0.8); Eosinophils % (auto) 7.9 % (0.0-7.0); Hematocrit 26.7 % (41.0-53.0); Hemoglobin 8.8 g/dL (13.5-17.5); Lymphocytes # (auto) 1.5 10 ^3/uL (0.4-5.4); Lymphocytes % (auto) 25.2 % (10.0-50.0); Mean Corpuscular Hemoglobin 28.5 pg (28.0-32.0); Mean Corpuscular Hgb Conc. 32.9 g/dL (32.0-36.0); Mean Corpuscular Volume 86.8 fL (80.0-100.0); Monocytes # (auto) 0.6 10 ^3/uL (0-1.3); Monocytes % (auto) 9.3 % (0.0-12.0); Neutrophils # (auto) 3.4 10 ^3/uL (1.6-8.6); Neutrophils % (auto) 57.1 % (37.0-80.0); Red Blood Cells 3.07 10^6/uL (4.5-5.90)
[2023-08-04 05:10] LABS: Red Cell Distribution Width 21.7 % (11.8-14.3)
[2023-08-04 05:23] LABS: Alanine Aminotransferase 11 U/L (7-40); Albumin 4.2 g/dL (3.2-4.8); Alkaline Phosphatase 167 U/L (46-116); Anion Gap 6 (5-15); Aspartate Aminotransferase 15 U/L (13-40); BUN/Creatinine Ratio 21.4 (10.0-20.0); Bilirubin, Total 0.6 mg/dL (0.2-1.0); Blood Urea Nitrogen 12 mg/dL (9-23); Calcium 9.6 mg/dL (8.7-10.4); Carbon Dioxide 27 mmol/L (20-30); Chloride 104 mmol/L (98-107); Glucose 121 mg/dL (74-106); Potassium 3.6 mmol/L (3.5-5.1); Sodium 137 mmol/L (136-145); Total Protein 7.3 g/dL (5.7-8.2)
[2023-08-05] VITALS (96 sets, daily range): BP systolic 85–120; BP diastolic 49–78; PULSE 59–100; RESP 9–24; TEMP 97–98.3; O2SAT 93–100
[2023-08-05] MEDS: MELATONIN 5 MG TAB PO SCH (21:58)
[2023-08-05] MEDS: APIXABAN 2.5 MG TAB PO SCH (21:58)
[2023-08-06] VITALS (91 sets, daily range): BP systolic 72–117; BP diastolic 47–67; PULSE 58–101; RESP 10–24; TEMP 96.6–98; O2SAT 86–100
[2023-08-06 08:09] LABS: Basophils # (auto) 0.1 10 ^3/uL (0-0.2); Basophils % (auto) 1.5 % (0.0-2.0); Eosinophils # (auto) 0.4 10 ^3/uL (0-0.8); Eosinophils % (auto) 7.6 % (0.0-7.0); Hemoglobin 9.7 g/dL (13.5-17.5); Lymphocytes # (auto) 1.3 10 ^3/uL (0.4-5.4); Lymphocytes % (auto) 24.3 % (10.0-50.0); Mean Corpuscular Hemoglobin 29.2 pg (28.0-32.0); Mean Corpuscular Hgb Conc. 33.7 g/dL (32.0-36.0); Mean Corpuscular Volume 86.7 fL (80.0-100.0); Monocytes # (auto) 0.6 10 ^3/uL (0-1.3); Monocytes % (auto) 10.3 % (0.0-12.0); Neutrophils % (auto) 56.3 % (37.0-80.0); Red Blood Cells 3.34 10^6/uL (4.5-5.90); White Blood Cell 5.4 10^3/uL (4.4-10.8)
[2023-08-06 08:11] LABS: Red Cell Distribution Width 21.9 % (11.8-14.3)
[2023-08-06 08:16] LABS: Chloride 103 mmol/L (98-107); Potassium 3.7 mmol/L (3.5-5.1); Sodium 135 mmol/L (136-145)
[2023-08-06 08:17] LABS: Anion Gap 6 (5-15); Calcium 10.1 mg/dL (8.5-10.1); Carbon Dioxide 26 mmol/L (20-30)
[2023-08-06 08:22] LABS: BUN/Creatinine Ratio 23.7 (10.0-20.0); Blood Urea Nitrogen 14 mg/dL (9-23); Glucose 109 mg/dL (74-106)
[2023-08-06 09:09] LABS: Magnesium 1.5 mg/dL (1.6-2.6)
[2023-08-06] MEDS: MAGNESIUM SULFATE 1GM/100ML 100 ML IV SCH (20:53)
[2023-08-07] VITALS (106 sets, daily range): BP systolic 78–117; BP diastolic 41–67; PULSE 57–116; RESP 10–76; TEMP 97.3–98.7; O2SAT 84–100
[2023-08-07] MEDS: DOPamine 1600MCG/ML D5W 250 ML IV SCH (11:48)
[2023-08-07] MEDS: HYDROcodone-ACET 5/325MG TAB PO PRN (15:16)
[2023-08-08] VITALS (92 sets, daily range): BP systolic 78–113; BP diastolic 44–70; PULSE 56–95; RESP 11–23; TEMP 96.5–98.3; O2SAT 90–100
[2023-08-08 06:15] LABS: Basophils # (auto) 0.2 10 ^3/uL (0-0.2); Basophils % (auto) 2.9 % (0.0-2.0); Eosinophils # (auto) 0.4 10 ^3/uL (0-0.8); Eosinophils % (auto) 6.8 % (0.0-7.0); Hematocrit 28.5 % (41.0-53.0); Hemoglobin 9.4 g/dL (13.5-17.5); Lymphocytes # (auto) 1.6 10 ^3/uL (0.4-5.4); Lymphocytes % (auto) 27.5 % (10.0-50.0); Mean Corpuscular Hemoglobin 28.8 pg (28.0-32.0); Mean Corpuscular Hgb Conc. 33.1 g/dL (32.0-36.0); Monocytes # (auto) 0.6 10 ^3/uL (0-1.3); Monocytes % (auto) 10.9 % (0.0-12.0); Neutrophils # (auto) 2.9 10 ^3/uL (1.6-8.6); Neutrophils % (auto) 51.9 % (37.0-80.0); Nucleated Red Blood Cells % 0.1 %; Red Blood Cells 3.27 10^6/uL (4.5-5.90); White Blood Cell 5.7 10^3/uL (4.4-10.8)
[2023-08-08 06:17] LABS: Red Cell Distribution Width 22.2 % (11.8-14.3)
[2023-08-08 06:22] LABS: Chloride 102 mmol/L (98-107); Potassium 3.8 mmol/L (3.5-5.1); Sodium 133 mmol/L (136-145)
[2023-08-08 06:23] LABS: Anion Gap 7 (5-15); Carbon Dioxide 24 mmol/L (20-30)
[2023-08-08 06:24] LABS: Calcium 9.6 mg/dL (8.7-10.4)
[2023-08-08 06:28] LABS: BUN/Creatinine Ratio 27.7 (10.0-20.0); Blood Urea Nitrogen 18 mg/dL (9-23); Glucose 115 mg/dL (74-106)
[2023-08-08 06:29] LABS: Magnesium 1.9 mg/dL (1.6-2.6)
[2023-08-08] MEDS: LOPERAMIDE HCL 2 MG CAP/TAB PO ONE (12:00)
[2023-08-08] MEDS: LOPERAMIDE HCL 2 MG CAP/TAB PO PRN (20:27)
[2023-08-09] VITALS (45 sets, daily range): BP systolic 86–116; BP diastolic 46–69; PULSE 44–103; RESP 10–24; TEMP 97.9–98.3; O2SAT 97–100
[2023-08-09 05:39] LABS: Basophils # (auto) 0.2 10 ^3/uL (0-0.2); Eosinophils # (auto) 0.6 10 ^3/uL (0-0.8); Eosinophils % (auto) 8.4 % (0.0-7.0); Hematocrit 27.2 % (41.0-53.0); Lymphocytes # (auto) 1.6 10 ^3/uL (0.4-5.4); Lymphocytes % (auto) 23.8 % (10.0-50.0); Mean Corpuscular Hemoglobin 29.2 pg (28.0-32.0); Mean Corpuscular Hgb Conc. 33.1 g/dL (32.0-36.0); Mean Corpuscular Volume 88.1 fL (80.0-100.0); Monocytes # (auto) 0.7 10 ^3/uL (0-1.3); Monocytes % (auto) 10.7 % (0.0-12.0); Neutrophils # (auto) 3.8 10 ^3/uL (1.6-8.6); Neutrophils % (auto) 54.1 % (37.0-80.0); Red Blood Cells 3.08 10^6/uL (4.5-5.90); Red Cell Distribution Width 22.1 % (11.8-14.3); White Blood Cell 6.9 10^3/uL (4.4-10.8)
[2023-08-09 05:57] LABS: Anion Gap 7 (5-15); Carbon Dioxide 24 mmol/L (20-30); Chloride 103 mmol/L (98-107); Potassium 3.8 mmol/L (3.5-5.1); Sodium 134 mmol/L (136-145)
[2023-08-09 05:58] LABS: Calcium 9.4 mg/dL (8.7-10.4)
[2023-08-09 06:03] LABS: BUN/Creatinine Ratio 30.2 (10.0-20.0); Blood Urea Nitrogen 19 mg/dL (9-23); Glucose 93 mg/dL (74-106); Magnesium 1.8 mg/dL (1.6-2.6)
[2023-08-10] VITALS (33 sets, daily range): BP systolic 87–121; BP diastolic 48–63; PULSE 48–87; RESP 13–25; TEMP 97.4–98.1; O2SAT 95–100
[2023-08-10 11:59] LABS: Basophils # (auto) 0.2 10 ^3/uL (0-0.2); Basophils % (auto) 2.4 % (0.0-2.0); Eosinophils # (auto) 0.5 10 ^3/uL (0-0.8); Eosinophils % (auto) 7.9 % (0.0-7.0); Hemoglobin 9.3 g/dL (13.5-17.5); Lymphocytes # (auto) 1.6 10 ^3/uL (0.4-5.4); Lymphocytes % (auto) 24.3 % (10.0-50.0); Mean Corpuscular Hemoglobin 28.8 pg (28.0-32.0); Mean Corpuscular Volume 87.1 fL (80.0-100.0); Monocytes # (auto) 0.8 10 ^3/uL (0-1.3); Monocytes % (auto) 12.5 % (0.0-12.0); Neutrophils # (auto) 3.4 10 ^3/uL (1.6-8.6); Neutrophils % (auto) 52.9 % (37.0-80.0); Nucleated Red Blood Cells % 0.1 %; Red Blood Cells 3.22 10^6/uL (4.5-5.90); White Blood Cell 6.5 10^3/uL (4.4-10.8)
[2023-08-10 12:20] LABS: Red Cell Distribution Width 21.7 % (11.8-14.3)
[2023-08-10 12:25] LABS: Alanine Aminotransferase 14 U/L (7-40); Albumin 3.9 g/dL (3.2-4.8); Alkaline Phosphatase 173 U/L (46-116); Anion Gap 5 (5-15); Aspartate Aminotransferase 18 U/L (13-40); BUN/Creatinine Ratio 30.6 (10.0-20.0); Blood Urea Nitrogen 19 mg/dL (9-23); Calcium 9.2 mg/dL (8.7-10.4); Carbon Dioxide 24 mmol/L (20-30); Chloride 104 mmol/L (98-107); Glucose 100 mg/dL (74-106); Magnesium 1.7 mg/dL (1.6-2.6); Potassium 4.2 mmol/L (3.5-5.1); Sodium 133 mmol/L (136-145)
[2023-08-10 12:26] LABS: Bilirubin, Total 0.5 mg/dL (0.2-1.0); Total Protein 6.9 g/dL (5.7-8.2)
[2023-08-11] VITALS (20 sets, daily range): BP systolic 89–110; BP diastolic 48–65; PULSE 53–71; RESP 10–24; TEMP 36.4; O2SAT 90–100
[2023-08-11 08:28] LABS: Basophils # (auto) 0.3 10 ^3/uL (0-0.2); Basophils % (auto) 4.6 % (0.0-2.0); Eosinophils # (auto) 0.5 10 ^3/uL (0-0.8); Eosinophils % (auto) 8.7 % (0.0-7.0); Hematocrit 28.2 % (41.0-53.0); Hemoglobin 9.3 g/dL (13.5-17.5); Lymphocytes # (auto) 1.5 10 ^3/uL (0.4-5.4); Lymphocytes % (auto) 25.2 % (10.0-50.0); Mean Corpuscular Hgb Conc. 32.8 g/dL (32.0-36.0); Mean Corpuscular Volume 88.4 fL (80.0-100.0); Monocytes # (auto) 0.6 10 ^3/uL (0-1.3); Monocytes % (auto) 10.1 % (0.0-12.0); Neutrophils % (auto) 51.4 % (37.0-80.0); Red Blood Cells 3.19 10^6/uL (4.5-5.90); Red Cell Distribution Width 21.8 % (11.8-14.3); White Blood Cell 5.9 10^3/uL (4.4-10.8)
[2023-08-11 08:50] LABS: Alanine Aminotransferase 13 U/L (7-40); Albumin 3.8 g/dL (3.2-4.8); Alkaline Phosphatase 176 U/L (46-116); Anion Gap 7 (5-15); Aspartate Aminotransferase 24 U/L (13-40); BUN/Creatinine Ratio 33.3 (10.0-20.0); Bilirubin, Total 0.7 mg/dL (0.2-1.0); Blood Urea Nitrogen 20 mg/dL (9-23); Calcium 9.7 mg/dL (8.5-10.1); Carbon Dioxide 25 mmol/L (20-30); Chloride 104 mmol/L (98-107); Glucose 93 mg/dL (74-106); Potassium 3.9 mmol/L (3.5-5.1); Sodium 136 mmol/L (136-145); Total Protein 6.9 g/dL (5.7-8.2)
[2023-08-11 09:10] LABS: Magnesium 1.7 mg/dL (1.6-2.6)
[2023-08-11 14:45] LABS: COVID19 ANTIGEN SOFIA FIA NEGATIVE (NEGATIVE)
[2023-08-12] VITALS (18 sets, daily range): BP systolic 93–118; BP diastolic 49–71; PULSE 49–72; RESP 8–20; TEMP 96.6–98.1; O2SAT 85–100
[2023-08-13] VITALS (19 sets, daily range): BP systolic 90–118; BP diastolic 48–61; PULSE 41–70; RESP 9–22; TEMP 36.4; O2SAT 95–100
== END 2023-08-13 17:41 | DRG 871 ==
LOC: ER 09:12 → EDUNIT# 09:12 → EDBD 09:12 → TELE 18:29 → DOU IN ICU 07-03 14:44 → ICU CENTRL 07-03 21:33 → ICU WEST 07-05 10:14 → DOU IN ICU 07-26 11:32 → ICU CENTRL 07-27 00:20 → DOU IN ICU 08-10 22:54
PROVIDERS: ADMIT Nurse Practitioner Family; ATTEND Family Medicine
PROC: 02HV33Z Insertion of Infusion Device into Superior Vena Cava, Percutaneous Approach (ICD-10-PCS; principal; 2023-07-07)
PROC: B548ZZA Ultrasonography of Superior Vena Cava, Guidance (ICD-10-PCS; 2023-07-07)
DX: A41.9 Sepsis, unspecified organism (principal); I50.43 Acute on chronic combined systolic (congestive) and diastolic (congestive) heart failure; L89.154 Pressure ulcer of sacral region, stage 4; J18.9 Pneumonia, unspecified organism; J96.21 Acute and chronic respiratory failure with hypoxia; R65.21 Severe sepsis with septic shock; R57.0 Cardiogenic shock; J44.0 Chronic obstructive pulmonary disease with (acute) lower respiratory infection; J44.1 Chronic obstructive pulmonary disease with (acute) exacerbation; N30.00 Acute cystitis without hematuria; I48.20 Chronic atrial fibrillation, unspecified; K56.600 Partial intestinal obstruction, unspecified as to cause; I47.20 Ventricular tachycardia, unspecified; Z20.822 Contact with and (suspected) exposure to COVID-19; Z66 Do not resuscitate; N40.0 Benign prostatic hyperplasia without lower urinary tract symptoms; E11.9 Type 2 diabetes mellitus without complications; E78.00 Pure hypercholesterolemia, unspecified; G89.29 Other chronic pain; I11.0 Hypertensive heart disease with heart failure; G47.00 Insomnia, unspecified; I49.5 Sick sinus syndrome; E83.42 Hypomagnesemia; I25.10 Atherosclerotic heart disease of native coronary artery without angina pectoris; I35.2 Nonrheumatic aortic (valve) stenosis with insufficiency; K59.09 Other constipation; Z96.651 Presence of right artificial knee joint; C44.329 Squamous cell carcinoma of skin of other parts of face; Z88.2 Allergy status to sulfonamides; Z79.01 Long term (current) use of anticoagulants; Z98.61 Coronary angioplasty status; I25.2 Old myocardial infarction; Z85.828 Personal history of other malignant neoplasm of skin
CPT/HCPCS: 36415; 36569; 71045; 74018; 74176; 74250; 80048; 80053; 80061; 81001; 82607; 82728; 82746; 82962; 83036; 83540; 83550; 83690; 83735; 83880; 84100; 84439; 84443; 84481; 84484; 85007; 85025; 85027; 85610; 85730; 87040; 87077; 87081; 87086; 87088; 87186; 87205; 87426; 87493; 87804; 93005; 93306; 96361; 96365; 96367; 97110; 97163; 97530; C9113; G0378; J1335; J1756; J2405; J3480; J7060; P9047